=== PATIENT | female | born 1980 | race Caucasian/White ===

== ENCOUNTER → 2018-05-21 15:30 | Outpatient (REF) | payer BC, SELFPAY ==
[2018-05-24 15:17] LABS: Chlamydia Result Negative; GC Result Negative
== END ==
LOC: LBN 15:30
PROVIDERS: PCP Nurse Practitioner Family; Visit Provider Nurse Practitioner Family
DX: Z11.3 Encounter for screening for infections with a predominantly sexual mode of transmission (principal)
CPT/HCPCS: 87491; 87591

== ENCOUNTER → 2018-05-21 15:34 | Outpatient (CLI) | payer BC, SELFPAY ==
[2018-05-24 09:26] LABS: Hepatitis B Surface Ag Negative (NEGAT)
[2018-05-24 09:45] LABS: Hepatitis C Ab w Rflx HCV PCR Negative (NEGAT)
[2018-05-24 09:54] LABS: HIV-1/2 Ag & Ab Screen Negative (NEGAT)
[2018-05-24 11:24] LABS: Syphilis Serology (RPR) Negative (Negative)
== END ==
PROVIDERS: PCP Nurse Practitioner Family; Visit Provider Nurse Practitioner Family
DX: Z11.59 Encounter for screening for other viral diseases (principal); Z11.3 Encounter for screening for infections with a predominantly sexual mode of transmission; Z11.4 Encounter for screening for human immunodeficiency virus [HIV]
CPT/HCPCS: 36415; 86803; 87340; 87389; 86592

== ENCOUNTER 2019-11-21 12:10 | Outpatient (CLI) | payer BC, SELFPAY ==
[2019-11-22 10:08] LABS: Hep B Core Antibody Negative (Negative); Hepatitis C Ab w Rflx HCV PCR Negative (Negative)
[2019-11-22 10:25] LABS: HIV-1/2 Ag & Ab Screen Negative (Negative)
[2019-11-23 10:10] LABS: Syphilis Total Ab w/Reflex Nonreactive (Nonreactive)
== END 2019-11-21 12:30 ==
PROVIDERS: Visit Provider Advanced Practice Midwife
DX: K61.0 Anal abscess (principal); Z11.4 Encounter for screening for human immunodeficiency virus [HIV]; Z11.59 Encounter for screening for other viral diseases; Z01.419 Encounter for gynecological examination (general) (routine) without abnormal findings
CPT/HCPCS: 36415; 86704; 86803; 87389; 86780

== ENCOUNTER 2019-11-21 12:41 | Outpatient (REF) | payer BC, SELFPAY ==
--- NOTE | 2019-11-21 11:40 | PAPFT_PTH ---
PATIENT: Leandra Mcdaniels LOC: [facility] U#:[id number] AGE/SX: 39/F ROOM: RE11/21/[address]: Gregory Mccoy RN : 1980 BED: DIS: 11/21/2019 SPEC #: [id number] RECD: 11/21/19 12:52 STATUS: ABRAHAM REQ #: [id number] CHRISTOPHER: 11/21/19 11:[address]: Gregory Mccoy DEPT: [facility] Cytology RECD BY: Nadege Granados ENTERED: 11/21/19 12:52 SP TYPE: PAPFT OT DR: None Tissues: 1 - CX/ENDOCX FOR PAP SMEARS Procedures: PAP THIN PREP/[facility] Screening HPV DNA PROBE Comments: [id number]
[2019-11-22 13:09] LABS: Chlamydia Result Negative (Negative); GC Result Negative (Negative)
== END 2019-11-21 13:01 ==
LOC: LBN 12:41
PROVIDERS: Visit Provider Advanced Practice Midwife
DX: Z11.3 Encounter for screening for infections with a predominantly sexual mode of transmission (principal); Z12.4 Encounter for screening for malignant neoplasm of cervix; Z01.419 Encounter for gynecological examination (general) (routine) without abnormal findings; Z11.51 Encounter for screening for human papillomavirus (HPV)
CPT/HCPCS: 87491; 87591; 88142; 87480; 87510; 87624; 87660

== ENCOUNTER 2019-12-09 16:03 | Outpatient (REF) | payer BC, SELFPAY ==
--- NOTE | 2019-12-09 15:45 | ENDO_PTH ---
PATIENT: Leandra Mcdaniels LOC: [facility] U#:[id number] AGE/SX: 39/F ROOM: RE12/09/[address]: Kareem Bustos MD : 1980 BED: DIS: 12/09/2019 SPEC #: [id number] RECD: 12/09/19 17:40 STATUS: ABRAHAM REQ #: [id number] CHRISTOPHER: 12/09/19 15:[address]: Kareem Bustos DEPT: Surgical Specimen RECD BY: Nadege Granados ENTERED: 12/09/19 17:40 SP TYPE: Endo OTHR DR: None Tissues: 1 - ENDOCERVICAL BX/CURRETTE Procedures: GROSS AND MICRO LEVEL 4 P16 IPEX Comments: [id number]
== END 2019-12-09 16:23 ==
LOC: LBN 16:03
PROVIDERS: Visit Provider Obstetrics & Gynecology
DX: N87.9 Dysplasia of cervix uteri, unspecified (principal); R87.810 Cervical high risk human papillomavirus (HPV) DNA test positive
CPT/HCPCS: 88305; 88342

== ENCOUNTER 2020-05-09 10:35 | Outpatient (REF) | payer BC, SELFPAY | END 2020-05-09 10:55 | LOC: LBN 10:35 | PROVIDERS: Visit Provider Advanced Practice Midwife | DX: N89.8 Other specified noninflammatory disorders of vagina (principal) | CPT/HCPCS: 87480; 87510; 87660 ==

== ENCOUNTER 2020-05-15 00:59 | Outpatient (CLI) | payer BC, SELFPAY ==
--- NOTE | 2020-05-15 06:00 | DI.MAMMO_ITS ---
EXAM: MAMMO SCREENING CLINICAL HISTORY: screening,Z12.39 TECHNIQUE: Mammograms were interpreted according to the usual protocol including computer analysis w [employer] CAD system, tomosynthesis and C-view imaging. COMPARISON: FINDINGS: Breasts are heterogeneously dense. No dominant mass or clumped microcalcification is identified. To day's examination is a baseline examination. IMPRESSION: No specific evidence of malignancy at this time. Routine screening examinations are suggested at yea rly intervals in this age group according to the ACR guidelines. BI-RADS Category 1 - Negative Breast Density - Category C - Heterogeneously dense
== END 2020-05-15 01:19 ==
PROVIDERS: Visit Provider Advanced Practice Midwife
DX: Z12.31 Encounter for screening mammogram for malignant neoplasm of breast (principal); R92.2 Inconclusive mammogram
CPT/HCPCS: 77063; 77067

== ENCOUNTER 2021-01-16 08:55 | Outpatient (REF) | payer OTHER, SELFPAY ==
--- NOTE | 2021-01-16 08:30 | PAPFT_PTH ---
PATIENT: Leandra Mcdaniels LOC: [facility] U#:[id number] AGE/SX: 40/F ROOM: RE01/16/[address]: Jahaira Dugan NP : 1980 BED: DIS: 01/16/2021 SPEC #: [id number] RECD: 01/16/21 13:00 STATUS: ABRAHAM ZIMMERMAN #: [id number] CHRISTOPHER: 01/16/21 08:[address]: Jahaira Dugan NP DEPT: [facility] Cytology RECD BY: Nadege Granados Tissues: 1 - CX/ENDOCX FOR PAP SMEARS Procedures: PAP THIN PREP/[facility] Screening HPV DNA PROBE Comments: [id number]
== END 2021-01-16 08:56 | disposition home or self-care (01) ==
LOC: LBN 08:55
PROVIDERS: PCP Nurse Practitioner Women's Health; Visit Provider Nurse Practitioner Women's Health
DX: Z12.4 Encounter for screening for malignant neoplasm of cervix (principal); R87.610 Atypical squamous cells of undetermined significance on cytologic smear of cervix (ASC-US); Z11.51 Encounter for screening for human papillomavirus (HPV); R87.810 Cervical high risk human papillomavirus (HPV) DNA test positive
CPT/HCPCS: 88142; 87624

== ENCOUNTER 2021-02-07 08:56 | Outpatient (CLI) | payer OTHER, SELFPAY | END 2021-02-07 08:57 | disposition home or self-care (01) | PROVIDERS: PCP Nurse Practitioner Women's Health | DX: Z20.822 Contact with and (suspected) exposure to COVID-19 (principal) | CPT/HCPCS: U0003 ==

== ENCOUNTER 2021-07-02 10:11 | Outpatient (REF) | payer OTHER, SELFPAY ==
--- NOTE | 2021-07-02 09:30 | ENDO_PTH ---
PATIENT: Leandra Mcdaniels LOC: [facility] #:[id number] AGE/SX: 41/F ROOM: RE07/02/[address]: Tatiana Bravo : 1980 BED: DIS: 07/02/2021 SPEC #: [id number] RECD: 07/02/21 12:45 STATUS: ABRAHAM REJuan #: [id number] CHRISTOPHER: 07/02/21 09:[address]: Tatiana Bravo DEPT: Surgical Specimen RECD BY: Nadege Granados ENTERED: 07/02/21 12:46 SP TYPE: Endo OTHR DR: Jahaira Dugan NP Tissues: 1 - ENDOCERVICAL BX/CURRETTE 2 - CERVICAL BIOPSY Procedures: GROSS AND MICRO LEVEL 4 Comments: [id number]
== END 2021-07-02 10:12 | disposition home or self-care (01) ==
LOC: LBN 10:11
PROVIDERS: PCP Nurse Practitioner Women's Health; Referring Provider Obstetrics & Gynecology Gynecology; Visit Provider Obstetrics & Gynecology Gynecology
DX: N87.9 Dysplasia of cervix uteri, unspecified (principal)
CPT/HCPCS: 88305

== ENCOUNTER 2022-03-18 15:00 | Outpatient (REF) | payer OTHER, SELFPAY ==
--- NOTE | 2022-03-18 14:15 | PAPFT_PTH ---
PATIENT: Leandra Mcdaniels LOC: [facility] U#:[id number] AGE/SX: 42/F ROOM: RE03/18/[address]: SARY Vanegas : 1980 BED: DIS: 03/18/2022 SPEC #: [id number] RECD: 03/18/22 18:05 STATUS: ABRAHAM REQ #: [id number] CHRISTOPHER: 03/18/22 14:[address]: Sari Nguyễn DEPT: [facility] Cytology RECD BY: Nadege Granados ENTERED: 03/18/22 18:05 SP TYPE: PAPFT OTHR DR: Jahaira Dugan NP Tissues: 1 - CX/ENDOCX FOR PAP SMEARS Procedures: PAP THIN PREP/[facility] Screening HPV DNA PROBE Comments: [id number]
== END 2022-03-18 15:01 | disposition home or self-care (01) ==
LOC: LBN 15:00
PROVIDERS: PCP Nurse Practitioner Women's Health; Visit Provider Nurse Practitioner Family
DX: Z12.4 Encounter for screening for malignant neoplasm of cervix (principal); Z11.51 Encounter for screening for human papillomavirus (HPV); R87.810 Cervical high risk human papillomavirus (HPV) DNA test positive; Z87.42 Personal history of other diseases of the female genital tract
CPT/HCPCS: 88142; 87624

== ENCOUNTER 2022-05-02 10:02 | Outpatient (REF) | payer OTHER, SELFPAY ==
--- NOTE | 2022-05-02 09:45 | ENDO_PTH ---
PATIENT: Leandra Mcdaniels LOC: [facility] U#:[id number] AGE/SX: 42/F ROOM: RE05/02/[address]: Tatiana Bravo : 1980 BED: DIS: 05/02/2022 SPEC #: [id number] RECD: 05/02/22 12:55 STATUS: ABRAHAM REQ #: [id number] CHRISTOPHER: 05/02/22 09:[address]: Tatiana Bravo DEPT: Surgical Specimen RECD BY: Nadege Granados ENTERED: 05/02/22 12:56 SP TYPE: Endo OTHR DR: Jahaira Dugan, YADY Tissues: 1 - ENDOCERVICAL BX/CURRETTE Procedures: GROSS AND MICRO LEVEL 4 P16 IPEX Comments: [id number]
--- OUTSIDE RECORDS SUMMARY | 2022-05-02 10:17 | XMS_ITS | Encounter Summary ---
:1980 Author Organization [facility] Address [address] [place] [address] Care Team Providers Name Role Phone Samanta Moreno NP Primary Care Provider None, Provider Primary Care Provider Unavailable Encounter Details Date Type Department Care Team Description 11/21/2019 Lab Requisition [facility] Unknown, Provider, Pathology & Laboratory [facility] [address] [place] [address] [place] [address] Social History Tobacco Use Types Packs/Day Years Used Date Never Assessed Sex Assigned at Date Recorded Not on file documented as of this encounter Plan of Treatment Not on filedocumented as of this encounter Procedures Procedure Name Priority Date/Time Associated Diagnosis Comme nts HEPATITIS C AB W Routine 11/21/2019 12:25 Results for this REFLEX TO HCV RNA EST procedure are in BY PCR the results section. HEPATITIS B CORE Routine 11/21/2019 12:25 Results for this ANTIBODY (TOTAL) EST procedure a re in the results section. documented in this encounter Results HEPATITIS B CORE ANTIBODY (TOTAL) (11/21/2019 12:25 EST) Pathologist Sig nature Hepatitis B Core Ab, Negative Negative [facility] Total LABORATORY SERVICES Specimen Blood - Venous blood (substance) Performing Organization Address City/State/ZIP Code Phon e Number [facility] [address] [place] [address] SERVICES HEPATITIS C AB W REFLEX TO HCV RNA BY PCR (11/21/2019 12:25 EST) Pathologist Sig nature Hep C Antibody Negative Negative [facility] ORY SERVICES Specimen Blood - Venous blood (substance) Performing Organization Address City/State/ZIP Code Phon e Number [facility] [address] [place] [address] SERVICES documented in this encounter Visit Diagnoses Not on filedocumented in this encounter Additional Health Concerns Infection Onset Date Last Indicated Resolved Time COVID-19 02/07/2021 02/07/2021 03/09/2021 22:15 EDT documented as of this encounter Care Teams Sciences Dean Relationship Specialty Start Date End Date Samanta Moreno NP PCP - General 12/12/13 12/08/19 [facility] [address] [place] [address] None, Provider PCP - General 12/09/19 documented as of this encounter
--- OUTSIDE RECORDS SUMMARY | 2022-05-02 10:17 | XMS_ITS | Clinical Summary ---
:1980 Author Organization [facility] Address [address] [place] [address] Care Team Providers Name Role Phone None, Provider Primary Care Provider Unavailable Encounters Date Type Specialty Care Team Description 03/19/2022 Lab Requisition Clinical Laboratory Sari Nguyễnnter for other E, LEATHER STAMPER general examina tion from Last 3 Months Social History Tobacco Use Types Packs/Day Years Used Date Never Assessed Sex Assigned at Date Recorded Not on file Plan of Treatment Health Maintenance Due Date Last Done Comments COVID-19 Vaccine (#1) 02/05/1984 Hepatitis C Screen Completed 11/21/2019 Procedures Procedure Name Priority Date/Time Associated Comments Diagnosis PAP TEST Today 03/18/2022 2:15 Encounter for other Resul ts for this EDT general examination procedur e are in the results section. HUMAN PAPILLOMAVIRUS Today 03/18/2022 2:15 Encounter for oth er Results for this (HPV) DETECTION-HIGH EDT general examination procedure are in RISK TYPES the results section. from Last 3 Months Results PAP TEST (03/18/2022 2:15 EDT) Specimens A. Cervix and/or [facility] Endocervix , ThinPrep CENTER Imaging System with LABORATORY Manual Evaluation SERVICES Specimen Adequacy Satisfactory for [facility] Evaluation - CENTER transformation zone LABORATORY component present SERVICES General Negative for [facility] Categorization intraepithelial CENTER lesion or malignancy LABORATORY SERVICES Descriptive Reactive cellular [facility] Diagnosis changes associated CENTER with inflammation LABORATORY present (includes SERVICES repair). Attestation By the signature below, the attending physician certifies that they have personally conducted a gross and/or microscopic [facility] Electronically examination of the described specimens and rendered or confirmed the above diagnosis. CENTER signed by ALAN Le MD on SERVICES 03/28/2022 at 15 36 Clinical History See below [facility] SERVICES HPV The result for the Human Pap illomavirus (HPV) Detection-High Risk Types is Positive . E6 OR E7 mRNA from one or more types of HPV types 16,18,31,33,35,39,45,51,52,56,58,59,66, and 68 is detected by dorman [facility] scription mediated amplifica tion. High and intermediate risk HPV types are associated with most squamous intraepithelial lesions and cervical cancers. Testing was performed on specimen [id number] and CENTER was resulted on 03/28/2022 1528 EDT by CAMMY, LAB INSTRUMENT RESULTS IN LABORATORY SERVICES Performing Lab [facility] Scanned Images [facility] SERVICES Specimen Pap Test - Cervix and/or Endocervix Performing Organization Address City/[facility]/ZIP [facility] [place] Number [facility] [address] [place] [address] SERVICES (ABNORMAL) HUMAN PAPILLOMAVIRUS (HPV) DETECTION-HIGH RISK TYPES (03/18/2022 2:15 EDT) Human Papillomavirus Positive (A)Comment: Negative [facility] (HPV) Detection-High E6 OR E7 mRNA from CENTER Types one or more types of LABORATORY HPV types SERVICES 16,18,31,33,35,39,45, 51,52,56,58,59,66, and 68 is detected by sandblaster paint sprayer mediated amplification. High and intermediate risk HPV types are associated with most squamous intraepithelial lesions and cervical cancers. Specimen Pap Test - Cervix and/or Endocervix Performing Organization Address City/State/ZIP [facility] Phon e Number [facility] [address] [place] [address] SERVICES from Last 3 Months Insurance Payer Benefit Plan / Subscriber ID Effective Dates Phone Addre ss Type Group [employer] HMO/POS [id number] 2020-Present [address] [place] [id number] Care Teams Compliance Field Technician Relationship Specialty Start Date End Date None, Provider PCP - General 12/09/19
--- OUTSIDE RECORDS SUMMARY | 2022-05-02 10:17 | XMS_ITS | Encounter Summary ---
:1980 Author Organization [facility] Address [address] [place] [address] Care Team Providers Name Role Phone Unavailable Primary Care Provider Unavailable Encounter Details Date Type Department Care Team Description 06/23/2004 Hospital Encounter [facility] - Felisha Alexis MD [address] [place], [place] [id number] Other Ron Drake MD [address], [place] [id number] Social History Tobacco Use Types Packs/Day Years Used Date Never Assessed Sex Assigned at Date Recorded Not on file documented as of this encounter Discharge Disposition Disposition Code Departure Means Destination Auto Discharge documented in this encounter Plan of Treatment Not on filedocumented as of this encounter Visit Diagnoses Not on filedocumented in this encounter
--- OUTSIDE RECORDS SUMMARY | 2022-05-02 10:17 | XMS_ITS | Encounter Summary ---
:1980 Author Organization [facility] Address [address] [place] [address] Care Team Providers Name Role Phone Samanta Bhatt NP Primary Care Provider Encounter Details Date Type Department Care Team Description 02/14/2016 Results Only [facility]- [facility] Tatiana Zuñiga MD [phone] [facility] [address] [address] (Wo rk) Social History Tobacco Use Types Packs/Day Years Used Date Never Assessed Sex Assigned at Date Recorded Not on file documented as of this encounter Plan of Treatment Not on filedocumented as of this encounter Procedures Procedure Name Priority Date/Time Associated Diagnosis Comme nts PAP TEST- RESULT Routine 02/14/2016 0:00 EDT Resu lts for this ONLY procedure are i n the results section. documented in this encounter Results PAP TEST- RESULT ONLY (02/14/2016 0:00 EDT) Pathology Report: CYTOPATHOLOGY REPORT [facility] Reports generated via electronic interface contain carlos ginal data; SERVICES however they are lacking the format of the original re port. Caution should be taken when reading/interpreting unfo rmatted reports. Name: ? CHINO GIL ? Accession #: ? [id number] ? : ? 1980 (Age: [age]) ??F ?Collect Date: ? 2015 ? Location: ? [facility] ? Receive Date: ? 6 ? Provider: TATIANA ZUÑIGA MD Copy to: SAMANTA BHATT MANAGER FITNESS ? Final Report SPECIMEN ADEQUACY ? Satisfactory for Evaluation - transformation zone component present - scant squamous epithelial component secondary to exc essive inflammation GENERAL CATEGORIZATION ? Negative for Intraepithelial Lesion or Malignan cy INTERPRETATION ? Reactive cellular ayo nges associated with inflammation present (includes repair). Hormonal/Contraceptive status: Depo-Provera Previous Gynecologic Pathology: HPV: + HR with negativ e colpo Treatment History: Colposcopy: Negative Specimen/Source: ??Pap Test, Cervix/Endocervix, ThinPr ep Imaging System with manual evaluation Document reviewed and electronically signed by: ? INDER MCFARLAND MD ? Report ??Date: 02/28/2016 08:29 HPV with Pap Test ? Date Ordered: ? 02/27/2016 ? Status: ?? Signed Out ?Date Complete: ? 03/03/2016 ? By: ??Sy stem Interface ? Date Reported: ? 03/03/2016 ? Interpretation RESULT: Negative for HPV. No E6 or E7 mRNA is detected from HPV types 16,18,31,3 3,35, 39,45,51,52,56,58,59,66, and 68 by residential subcontractor media logan amplification. Comments Document reviewed and electronically signed by: ? System Interface ? Report date: 03/03/2016 By the signature above, the attending physician certif ies that he/she has personally conducted a gross and/or microscopic examin ation of the described specimens and rendered or confirmed the above diagnosi s. End of Report Specimen Performing Organization Address City/State/ZIP Code Phon e Number [facility] [address] [place] [address] SERVICES documented in this encounter Visit Diagnoses Not on filedocumented in this encounter Care Teams Equipment Operator Warehouse Relationship Specialty Start Date End Date Samanta Bhatt NP PCP - General 12/12/13 12/08/19 [facility] [address] [place] [id number] documented as of this encounter
--- OUTSIDE RECORDS SUMMARY | 2022-05-02 10:17 | XMS_ITS | Encounter Summary ---
:1980 Author Organization [facility] Address [address] [place] [address] Care Team Providers Name Role Phone Unavailable Primary Care Provider Unavailable Encounter Details Date Type Department Care Team Description 02/25/2008 Results Only [facility] - Samanta Mendez NP conversion [facility] [address] [place] [address] [place] [address] [phone] Social History Tobacco Use Types Packs/Day Years Used Date Never Assessed Sex Assigned at Date Recorded Not on file documented as of this encounter Plan of Treatment Not on filedocumented as of this encounter Procedures Procedure Name Priority Date/Time Associated Diagnosis Comme nts CYTOPATHOLOGY Routine 02/25/2008 0:00 EDT Results for this procedure are i n the results section . documented in this encounter Results CYTOPATHOLOGY (02/25/2008 0:00 EDT) Pathology Report: CYTOPATHOLOGY REPORT [facility] Reports generated via electronic interface contain carlos ginal data; however they are lacking the format of the original re port. Caution should be taken when reading/interpreting unfo rmatted reports. Name: ? CHINO GIL ? Accession #: ? [id number] : ? 1980 (Age: 28) ??F ?Collect Date: ? 02/09 Location: ? [facility] ? Receive Date : ? 02/29/2008 Provider: ?SAMANTA BHTAT SERVICE ASSISTANT Copy to: ? Specimen/Source: ? ThinPrep Pap Test, Cervix/Endocervix, processed on alooma ThinPrep Imaging System, with manual evaluation Last Menstrual Period: ? Hormonal/Contraceptive Status: ? Depo-Provera ? SPECIMEN ADEQUACY ? Satisfactory for Evaluation - transformation zone component present GENERAL CATEGORIZATION ? Epithelial Cell Abnormality INTERPRETATION ? Squamous Cell Abnormality - Low grade squamous intraepithelial lesion (LSIL). Shift in [place] present suggestive of bacterial vaginos is. EDUCATIONAL NOTES/RECOMMENDATIONS ? [facility] recommends erickson meeks the 2006 Consensus Guidelines for the Management of Women with Abnormal Cervical Cancer Screening Tests (JLGTD, 2007;11(4):201-222). ??Consensus guidelines are availa ble online at www.ASCCP.org. ? Document reviewed and electronically signed by: ? ADELIA BEY MD ? Report Date: ??03/02/2008 16:23 End of Report Specimen Performing Organization Address City/State/ZIP Code Phon e Number [facility] [address] [place] [address] SERVICES [facility] [address] [place] [address] documented in this encounter Visit Diagnoses Not on filedocumented in this encounter
--- OUTSIDE RECORDS SUMMARY | 2022-05-02 10:17 | XMS_ITS | Encounter Summary ---
:1980 Author Organization [facility] Address [address] [place] [address] Care Team Providers Name Role Phone Samanta Moreno NP Primary Care Provider None, Provider Primary Care Provider Unavailable Encounter Details Date Type Department Care Team Description 11/21/2019 Lab Requisition [facility] Unknown, Provider, Pathology & Laboratory [facility] [address] [place] [address] [place] [address] Social History Tobacco Use Types Packs/Day Years Used Date Never Assessed Sex Assigned at Date Recorded Not on file documented as of this encounter Plan of Treatment Not on filedocumented as of this encounter Procedures Procedure Name Priority Date/Time Associated Comments Diagnosis CHLAMYDIA/N. Routine 11/21/2019 11:40 Results for this GONORRHOEAE AMPLIFIED EST proced ure are in RNA the results section. documented in this encounter Results CHLAMYDIA/N. GONORRHOEAE AMPLIFIED RNA (11/21/2019 11:40 EST) Pathologist Sig nature Gonococcus Result Negative Negative [facility] Chlamydia Result Negative Negative [facility] Specimen Swab - Specimen from uterine cervix (spe cimen) Performing Organization Address City/State/ZIP Code Phon e Number [facility] [address] [place] [address] SERVICES documented in this encounter Visit Diagnoses Not on filedocumented in this encounter Additional Health Concerns Infection Onset Date Last Indicated Resolved Time COVID-19 02/07/2021 02/07/2021 03/09/2021 22:15 EDT documented as of this encounter Care Teams Mold Sheet Cleaner Relationship Specialty Start Date End Date Samanta Moreno, MANUFACTURE SPECIALIST PCP - General 12/12/13 12/08/19 [facility] [address] [place] [address] None, Provider PCP - General 12/09/19 documented as of this encounter
--- OUTSIDE RECORDS SUMMARY | 2022-05-02 10:17 | XMS_ITS | Encounter Summary ---
:1980 Author Organization [facility] Address [address] [place] [address] Care Team Providers Name Role Phone Unavailable Primary Care Provider Unavailable Encounter Details Date Type Department Care Team Description 01/17/2009 Before [facility] Converted [facility], Visit (Maple) Maple conversion PHYSICIAN GENERAL INTERNAL MEDICINE [address] [place] [address] Social History Tobacco Use Types Packs/Day Years Used Date Never Assessed Sex Assigned at Date Recorded Not on file documented as of this encounter Plan of Treatment Not on filedocumented as of this encounter Procedures Procedure Name Priority Date/Time Associated Comments Diagnosis HPV DETECTION, HIGH Routine 01/17/2009 15:22 Resu lts for this RISK TYPES EDT procedure are i n the results section. CYTOPATHOLOGY Routine 01/17/2009 0:00 Results for this EDT procedure are i n the results section. documented in this encounter Results HUMAN PAPILLOMA VIRUS DNA TEST (01/17/2009 15:22 EDT) Specimen Description Cervix, ThinPrep [facility] Result Positive for one or more of HPV types 16,18,31,33,35,39,45,51,52,56,58,59, or 68. These WARREN Adrian RICH high/intermediate risk HPV t ypes are associated with dysplasia and some cervical cancers. LAB Report Status Final [facility] 01/25/2009 LAB Specimen Performing Organization Address City/State/ZIP Code Phon e Number [facility] [address] [place] [address] SERVICES [facility] [address] [place] [address] CYTOPATHOLOGY (01/17/2009 0:00 EDT) Pathology Report: CYTOPATHOLOGY REPORT ? [facility] ? LAB Reports generated via electr Smaato interface contain original data; ? however they are lacking the format of the original report. ? Caution should be taken when reading/interpreting unformatted reports. ? Name: ? CHINO GIL ? Accession #: ? [id number] ? : ? 1980 (Age: 28) ??F ?Collect Date: ? 01/17/2009 ? Location: ? [facility] ? Receive Date: ? 01/18/2009 ? Provider: ?ELVIA M RO WLETT PHYSICIAN GENERAL INTERNAL MEDICINE ? Copy to: ? Specimen/Source: ? Pap Test, Cervix/Endocervix, ThinPrep Imaging System ? with manual evaluation ? Last Menstrual Period: ? 12/08 ? Hormonal/Contraceptive Statu s: ? Depo-Provera ? Previous Gynecologic Patholo gy: ? LSIL: 05/16/08 no follow-up ? Other: ? HPVDX - HPV testing requeste d regardless of diagnosis on current ThinPrep Pap ?? test. ? SPECIMEN ADEQUACY ? Satisfactory for Eval uation ? - transformation zone compon ent present ? GENERAL CATEGORIZATION ? Epithelial Cell Abnor mality ? INTERPRETATION ? Squamous Cell Abnorma lity - Atypical squamous cells, undetermined ? significance (ASC-US). ? EDUCATIONAL NOTES/RECOMMENDA TIONS ? [facility] recommends derrello wing the 2006 Consensus Guidelines for the Management of Women with Abnormal Cervi isai Cancer Screening Tests (JLGTD, ? 2007;11(4):201-222). ??Conse nsus guidelines are available online at ? www.ASCCP.org. ? Document reviewed and electr onically signed by: ? Glen Lacy MD ? Report Date: ??04/14/ 2009 12:27 ? End of Report ? Specimen Performing Organization Address City/State/ZIP Code Phon e Number [facility] [address] [place] [address] SERVICES [facility] [address] [place] [address] documented in this encounter Visit Diagnoses Not on filedocumented in this encounter
--- OUTSIDE RECORDS SUMMARY | 2022-05-02 10:17 | XMS_ITS | Encounter Summary ---
:1980 Author Organization [facility] Address [address] [place] [address] Care Team Providers Name Role Phone Unavailable Primary Care Provider Unavailable Encounter Details Date Type Department Care Team Description 11/09/2013 Results Only [facility] Angie Mcduffie, YADY Laboratory Services - [address] [address] Social History Tobacco Use Types Packs/Day Years Used Date Never Assessed Sex Assigned at Date Recorded Not on file documented as of this encounter Plan of Treatment Not on filedocumented as of this encounter Procedures Procedure Name Priority Date/Time Associated Diagnosis Comme nts PAP TEST- RESULT Routine 11/09/2013 0:00 EST Resu lts for this ONLY procedure are i n the results section. documented in this encounter Results PAP TEST- RESULT ONLY (11/09/2013 0:00 EST) Pathology Report: CYTOPATHOLOGY REPORT [facility] Reports generated via electronic interface contain carlos ginal data; however they are lacking the format of the original re port. Caution should be taken when reading/interpreting unfo rmatted reports. Name: ? CHINO GIL ? Accession #: ? [id number] ? : ? 1980 (Age: 33) ??F ?Collect Da te: ? 11/09/2013 ? Location: ? [facility] ? Receive Date: ? 014 ? Provider: ANGIE MCDUFFIE LICENSING REPRESENTATIVE Copy to: GORDON BHATT LICENSING REPRESENTATIVE ? Final Report SPECIMEN ADEQUACY ? Satisfactory for Evaluation - transformation zone component present GENERAL CATEGORIZATION ? Negative for Intraepithelial Lesion or Malignan cy INTERPRETATION ? Reactive cellular ayo nges associated with inflammation present (includes repair). Last Menstrual Period: 5 YRS AGO Hormonal/Contraceptive status: Intrauterine device: [facility] ASHLEE Previous Gynecologic Pathology: LSIL: P HX 2007 ASC-US HPV: + 2008, Treatment History: Colposcopy: 03/2009 ??Neg / no bx Other: Additional clinical information: no f/iu since Specimen/Source: ??Pap Test, Cervix/Endocervix, ThinPr ep Imaging System with manual evaluation Document reviewed and electronically signed by: ? ELIDA MCCLAIN MD ? Report ??Date: 11/16/2013 18:14 HPV with Pap Test ? Date Ordered: ? 11/16/2013 ? Status: ?? Signed Out ?Date Complete: ? 11/18/2013 ? By: ??S ystem Interface ? Date Reported: ? 11/18/2013 ? Interpretation RESULT: Positive for high or intermediate risk HPV. E6 OR E7 mRNA from one or more types of HPV types 16,1 8,31, 33,35,39,45,51,52,56,58,59,66, and 68 is detected by care asst mediated amplification. High and intermediate risk HPV types are associated wi th most squamous intraepithelial lesions and cervical can cers. Comments Document reviewed and electronically signed by: ? System Interface ? Report date: 11/18/2013 By the signature above, the attending physician certif ies that he/she has personally conducted a gross and/or microscopic examin ation of the described specimens and rendered or confirmed the above diagnosi s. End of Report Specimen Performing Organization Address City/State/ZIP Code Phon e Number [facility] [address] [place] [address] SERVICES [facility] [address] [place] [address] documented in this encounter Visit Diagnoses Not on filedocumented in this encounter
--- OUTSIDE RECORDS SUMMARY | 2022-05-02 10:17 | XMS_ITS | Encounter Summary ---
:1980 Author Organization [facility] Address [address] [place] [address] Care Team Providers Name Role Phone None, Provider Primary Care Provider Unavailable Encounter Details Date Type Department Care Team Description 12/10/2019 Lab Requisition [facility] Kareem Bustos MD Encounter for other Pathology & [address] [facility] general examination Laboratory Medicine [facility] [id number] [address] [facility] [phone] [place] [address] (Work) [phone] Social History Tobacco Use Types Packs/Day Years Used Date Never Assessed Sex Assigned at Date Recorded Not on file documented as of this encounter Plan of Treatment Not on filedocumented as of this encounter Procedures Procedure Name Priority Date/Time Associated Diagnosis Comme nts SURGICAL PATHOLOGY Today 12/09/2019 15:35 Encounter for othe r Results for this EST general examination procedur e are in the results section. documented in this encounter Results SURGICAL PATHOLOGY (12/09/2019 15:35 EST) Final Diagnosis A. ENDOCERVIX, CURETTAGE: [facility] Electronically - Squamous and glandular epithelium with degener ative atypia. See comment. CENTER signed by ALAN Hull MD on SERVICES 12/14/2019 at 133 2 Diagnosis Comment Immunostaining for P16 (E6H4 TM, Primghar) was attempted, but no tissue remains in the block. We favor the atypia is degenerative. This case was reviewed at the intradepartmental consultation conference on 12/14/2019. [facility] Clinical History HR HPV+ [facility] Attestation There was significant [facility] Electr onically resident/fellow CENTER signed by Yao bacon, involvement in the LABORATORY Navya lauren MD on diagnostic evaluation SERVICES 12/14/19 20 at 1332 of this case. By the signature below, the attending physician certifies that they have personally conducted a gross and/or microscopic examination of the described specimens and rendered or confirmed the above diagnosis. Gross Description A. Received in formalin labe lled with proper patient identification (initials B, D) and ECC is an aggregate of scant cloudy viscous material (0.3 x 0.2 x 0.1 cm). Entirely submitted in A1. [facility] Iona Marks 12/10/2019 7:40 LABORATORY SERVICES Resident/Fellow: Mehul Castillo MD [facility] Scanned Images [facility] Specimen Tissue - Entire endocervix (body structu re) Performing Organization Address City/State/ZIP Code Phon e Number [facility] [address] [place] [address] SERVICES documented in this encounter Visit Diagnoses Diagnosis Encounter for other general examination documented in this encounter Additional Health Concerns Infection Onset Date Last Indicated Resolved Time COVID-19 02/07/2021 02/07/2021 03/09/2021 22:15 EDT documented as of this encounter Care Teams Sterilizer Operator Relationship Specialty Start Date End Date None, Provider PCP - General 12/09/19 documented as of this encounter
--- OUTSIDE RECORDS SUMMARY | 2022-05-02 10:17 | XMS_ITS | Encounter Summary ---
:1980 Author Organization [facility] Address [address] [place] [address] Care Team Providers Name Role Phone Unavailable Primary Care Provider Unavailable Encounter Details Date Type Department Care Team Description 03/10/2002 Hospital Encounter [facility] Emergency, Emergency Department - MD Yobany Main [address] [address] Social History Tobacco Use Types Packs/Day Years Used Date Never Assessed Sex Assigned at Date Recorded Not on file documented as of this encounter Discharge Disposition Disposition Code Departure Means Destination Home or Self Care documented in this encounter Plan of Treatment Not on filedocumented as of this encounter Procedures Procedure Name Priority Date/Time Associated Diagnosis Comme nts URINE SEDIMENT Routine 03/10/2002 8:07 EDT Result s for this (MICRO) WITHOUT procedure ar e in REFLEX TO CULTURE the result s section. BACTERIAL CULTURE, Routine 03/10/2002 8:07 EDT Re sults for this URINE procedure are i n the results section. documented in this encounter Results BACTERIAL CULTURE, URINE (03/10/2002 8:07 EDT) Specimen Description Urine [facility] Result Greater than 100,000 CFU/ml [facility] Less than 10,000 CFU/ml Mixed gram positive growth Report Status Final [facility] [id number] [facility] Specimen Organism Antibiotic Method Susceptibility Greater than 100,000 Ampicillin SUSCEPTIBILITY (SHRUTHI) 2 Susc eptible cfu/ml escherichia coli Greater than 100,000 Cefazolin SUSCEPTIBILITY (SHRUTHI) <=8 Steiner sceptible cfu/ml escherichia coli Greater than 100,000 Gentamicin SUSCEPTIBILITY (SHRUTHI) <=0.5 Susceptible cfu/ml escherichia coli Greater than 100,000 Trimethoprim-Sulfametho SUSCEPTIBILITY (SHRUTHI ) <=.5/9.5 Susceptible cfu/ml escherichia xazole coli Greater than 100,000 Nitrofurantoin SUSCEPTIBILITY (SHRUTHI) <=32 S usceptible cfu/ml escherichia coli Greater than 100,000 Tobramycin SUSCEPTIBILITY (SHRUTHI) 1 Susc eptible cfu/ml escherichia coli Greater than 100,000 Amikacin SUSCEPTIBILITY (SHRUTHI) <=2 Steiner sceptible cfu/ml escherichia coli Greater than 100,000 Imipenem SUSCEPTIBILITY (SHRUTHI) <=4 Steiner sceptible cfu/ml escherichia coli Greater than 100,000 Piperacillin SUSCEPTIBILITY (SHRUTHI) <=8 Steiner sceptible cfu/ml escherichia coli Greater than 100,000 Ciprofloxacin SUSCEPTIBILITY (SHRUTHI) <=0.5 Susceptible cfu/ml escherichia coli Performing Organization Address City/State/ZIP Code Phon e Number [facility] [address] [place] [address] SERVICES [facility] [address] [place] [address] URINE MICROSCOPIC ONLY (03/10/2002 8:07 EDT) WBC, UA >50 0 - 5 /HPF [facility] RBC, UA >50 0 - 5 /HPF [facility] Squam Epithel, UA None seen NS /HPF [facility] Renal Epithel, UA None seen NS /HPF [facility] Bacteria, UA None seen NS /HPF [facility] Crystals, UA None seen /HPF [facility] Hyaline Casts, UA None seen /LPF [facility] UA Comment Microscopic results [facility] are unreliable on LAB urines unrefrig >2hrs or refrig >8hrs. Specimen Performing Organization Address City/State/ZIP Code Phon e Number [facility] [address] [place] [address] SERVICES [facility] [address] [place] [address] documented in this encounter Visit Diagnoses Not on filedocumented in this encounter
--- OUTSIDE RECORDS SUMMARY | 2022-05-02 10:17 | XMS_ITS | Encounter Summary ---
:1980 Author Organization [facility] Address [address] [place] [address] Care Team Providers Name Role Phone Unavailable Primary Care Provider Unavailable Encounter Details Date Type Department Care Team Description 12/07/2013 Results Only [facility]- Tatiana Knowles MD [phone] [facility] [address] [place] [address] (Wo rk) Social History Tobacco Use Types Packs/Day Years Used Date Never Assessed Sex Assigned at Date Recorded Not on file documented as of this encounter Plan of Treatment Not on filedocumented as of this encounter Procedures Procedure Name Priority Date/Time Associated Diagnosis Comme [facility] SURGICAL PATHOLOGY Routine 12/07/2013 18:11 Resul ts for this EST procedure are i n the results section. documented in this encounter Results SURGICAL PATHOLOGY (12/07/2013 18:11 EST) Pathologist [facility] Pathology SURGICAL PATHOLOGY REPORT [facility] Report: Reports generated via electronic interface contain carlos ginal data; LAB however they are lacking the format of the original re port. Caution should be taken when reading/interpreting unfo rmatted reports. Name: ? CHINO GIL ? Accession #: ? [id number] ? : ? 1980 (Age: 33) ??F ? Collect Date: ? 12/07/2013 ? Location: ? [facility] ? Receive Date: ? 014 ? Provider: TATIANA ZUÑIGA MD Copy to: GORDON BHATT MEDIA RELATIONS INTERN ? Final Pathologic Diagnosis: ? A. ? CERVIX, 12 O'CLOCK, BIOPSY: - ? Transformation zone mucosa with reactive squamous atypia. ??See comment. ? B. ? CERVIX, 3 O'CLOCK, BIOPSY: - ? Benign transformation zone mucos a with acute inflammation and reactive epithelial changes. ? C. ? CERVIX, 6 O'CLOCK, BIOPSY: - ? Benign transformation zone mucosa with reactiv e epithelial changes. ? D. ? CERVIX, 9 O'CLOCK, BIOPSY: - ? Benign transformation zone mucosa with reactiv e epithelial changes. Comment: The focus of reactive atypia (specimen A ) did show increased mitotic activity. To further investigate this focus, immun ohistochemical staining was performed. Positive and negative controls stained appropriately. ? ANTIBODY(CLONE)(BLOCK):RESULT P16 (E6H4TM, [employer]erTrack) (A1): Negative staining (scant amount of atypia present) MIB-1(DAKO) (MIB-1, Dako) (A1): Increased suprabasal s taining The combined histologic and immunohistochemical patter ns are interpreted as reactive atypia. ??This focu s and additional sections from this cervical biopsy series were at the intradepartmental consultation conf erence. ? NOTE: ??One or more of the reagents used in immunohistochemical testing in this case may not have been cleared or approved by the U.S. Food and Drug Administration (FDA). ??The FDA has determined that such clearance or approval is not necessary. ??These tests are used for clinical purposes. ??They should not be regarded as investigational or for research. ??These r eagents' performance characteristics have been determined by [facility]. ??This laboratory is certified unde r the Clinical Laboratory Improvement Amendments of 1988 (CLIA-88) as qualified to perform high complexity clinical laboratory testing. ?? Drs. Molina and Cathy 12/12/2013 10:20 AM Document reviewed and electronically signed by: KO MOLINA MD Report ??Date: 12/14/2013 08:44 By the signature above, the attending physician certif ies that he/she has personally conducted a gross and/or microscopic examin ation of the described specimens and rendered or confirmed the above diagnosi s. Specimen(s) Received: A. ??Cervical bx 12 o'clock B. ??Cervical bx 3 o'clock C. ??Cervical bx 6 o'clock D. ??Cervical bx 9 o'clock Clinical History: Ectocervical bx 12, 3, 6, 9 o'clock; HR (+) HPV/nl Pap Gross Description: A. ?Received in formalin labelled with proper p atient identification (initials B, D) and cx 12 o'clock is a single stoddard-wh ite, focally mucinous tissue fragment (0.5 x 0.4 x 0.2 cm). Submitted intact in A1. B. ?Received in formalin labelled with proper p atient identification (initials B, D) and cx 3 o'clock are t wo stoddard-white tissues (0.3 x 0.2 x less than 0.1 cm and 0.3 x 0.2 x 0.1 cm). Entirely submitte d in B1. C. ?Received in formalin labelled with proper p atient identification (initials B, D) and cx 6 o' clock is a single stoddard-white tissue fragment (0.5 x 0.3 x 0.3 cm). Submitted intact in C1. D. ? Received in formalin labelled with proper pat ient identification (initials B, D) and cx 9 o' clock is a single stoddard-white tissue fragment (0.4 x 0.3 x 0.2 cm). Submitted intact in D1. Sarah Pereyra 12/08/2013 09:30 AM End of Report Specimen Performing Organization Address City/State/ZIP Code Phon e Number [facility] [address] [place] [address] SERVICES [facility] [address] [place] [address] documented in this encounter Visit Diagnoses Not on filedocumented in this encounter
--- OUTSIDE RECORDS SUMMARY | 2022-05-02 10:17 | XMS_ITS | Encounter Summary ---
:1980 Author Organization [facility] Address [address] [place] [address] Care Team Providers Name Role Phone None, Provider Primary Care Provider Unavailable Encounter Details Date Type Department Care Team Description 03/19/2022 Lab Requisition [facility] Sari Nguyễn E ncounter for other Pathology & FLEXIBLE MACHINING SYSTEM MACHINIST general examination Laboratory Medicine [address] [place], [place] [address] [facility] [address] [place] [address] Social History Tobacco Use Types Packs/Day [...] are in RISK TYPES the results section. documented in this encounter Results (ABNORMAL) HUMAN PAPILLOMAVIRUS (HPV) DETECTION-HIGH RISK TYPES (03/18/2022 2:15 EDT) Human Papillomavirus Positive (A)Comment: Negative [facility] MEDICAL (HPV) Detection-High E6 OR E7 mRNA from CENTER Types one or more types of LABORATORY HPV types SERVICES 16,18,31,33,35,39,45, 51,52,56,58,59,66, and 68 is detected by anesthesiologist/physician mediated amplification. High and intermediate risk HPV types are associated with most squamous intraepithelial lesions and cervical cancers. Specimen Pap Test - Cervix and/or Endocervix Performing Organization Address City/[facility] Code Phon e Number [facility] [address] [place] [address] SERVICES PAP TEST (03/18/2022 2:15 EDT) Specimens A. Cervix and/or [facility] MEDICAL Endocervix , ThinPrep CENTER Imaging System with LABORATORY Manual Evaluation SERVICES Specimen Adequacy Satisfactory for [facility] MEDICAL Evaluation - CENTER transformation zone LABORATORY component present SERVICES General Negative for [facility] MEDICAL Categorization intraepithelial CENTER lesion or malignancy LABORATORY SERVICES Descriptive Reactive cellular UV MEDICAL Diagnosis changes associated CENTER with inflammation LABORATORY present (includes SERVICES repair). Attestation By the signature below, the attending physician certifies that they have personally conducted a gross and/or microscopic [facility] MED ICA Electronically examination of the described specimens and rendered or confirmed the above diagnosis. CENTER signed by ALAN Le MD on SERVICES 03/28/2022 at 15 36 Clinical History See below [facility] SERVICES HPV The result for the Human Pap illomavirus (HPV) Detection-High Risk Types is Positive . E6 OR E7 mRNA from one or more types of HPV types 16,18,31,33,35,39,45,51,52,56,58,59,66, and 68 is detected by dorman [facility] scription mediated amplifica tion. High and intermediate risk HPV types are associated with most squamous intraepithelial lesions and cervical cancers. Testing was performed on specimen [id number] and CENTER was resulted on 03/28/2022 1528 EDT by CAMMY, LAB INSTRUMENT RESULTS IN LABORATORY SERVICES Performing Lab [facility] SERVICES Scanned Images [facility] SERVICES Specimen Pap Test - Cervix and/or Endocervix Performing Organization Address City/State/ZIP Code Phon e Number [facility] [address] [place] [address] SERVICES documented in this encounter Visit Diagnoses Diagnosis Encounter for other general examination documented in this encounter Care Teams Tempering Oven Operator Relationship Specialty Start Date End Date None, Provider PCP - General 12/09/19 documented as of this encounter
--- OUTSIDE RECORDS SUMMARY | 2022-05-02 10:17 | XMS_ITS | Encounter Summary ---
:1980 Author Organization [facility] Address [address] [place] [address] Care Team Providers Name Role Phone Unavailable Primary Care Provider Unavailable Encounter Details Date Type Department Care Team Description 04/12/2004 Results Only [facility] - Felisha Garcia MD conversion [address] [facility] [address] [place] [address] [place], [place] [id number] [phone] Social History Tobacco Use Types Packs/Day Years Used Date Never Assessed Sex Assigned at Date Recorded Not on file documented as of this encounter Plan of Treatment Not on filedocumented as of this encounter Procedures Procedure Name Priority Date/Time Associated Diagnosis Comme nts CYTOPATHOLOGY Routine 04/12/2004 0:00 EDT Results for this procedure are i n the results section . documented in this encounter Results CYTOPATHOLOGY (04/12/2004 0:00 EDT) Pathology Report: CYTOPATHOLOGY REPORT [facility] Reports generated via electronic interface contain carlos ginal data; however they are lacking the format of the original re port. Caution should be taken when reading/interpreting unfo rmatted reports. Name: ? CHINO GIL ? Accession #: ? [id number] : ? 1980 (Age: 24) ??F ?Collect Date: ? 11/2003 Location: ? [facility] ? Receive Date : ? 04/17/2004 Provider: ?FELISHA MENDOSA MD Copy to: ? Specimen/Source: ?ThinPrep Pap Test, Cervix/ Endocervix Last Menstrual Period: ? Menstrual/ Status: ? SPECIMEN ADEQUACY ? Satisfactory for Evaluation - transformation zone component present GENERAL CATEGORIZATION ? Negative for Intraepithelial Lesion or Malignan cy INTERPRETATION ? Shift in [place] present suggestive of bacterial vaginosis. ? Document reviewed and electronically signed by: ? DAVON Santos(ASCP) ? Report Date: ??04/23/2004 11:32 End of Report Specimen Performing Organization Address City/State/ZIP Code Phon e Number [facility] [address] [place] [address] SERVICES [facility] [address] [place] [address] documented in this encounter Visit Diagnoses Not on filedocumented in this encounter
--- OUTSIDE RECORDS SUMMARY | 2022-05-02 10:17 | XMS_ITS | Encounter Summary ---
:1980 Author Organization [facility] Address [address] [place] [address] Care Team Providers Name Role Phone Unavailable Primary Care Provider Unavailable Encounter Details Date Type Department Care Team Description 12/07/2013 Hospital Encounter [facility]- Gunjan Unknown, Provider, [facility] [address] [facility] [phone] [place] [address] (Work) [phone] Social History Tobacco Use Types Packs/Day Years Used Date Never Assessed Sex Assigned at Date Recorded Not on file documented as of this encounter Discharge Disposition Disposition Code Departure Means Destination Home or Self Shelter documented in this encounter Plan of Treatment Not on filedocumented as of this encounter Visit Diagnoses Not on filedocumented in this encounter
--- OUTSIDE RECORDS SUMMARY | 2022-05-02 10:17 | XMS_ITS | Encounter Summary ---
:1980 Author Organization [facility] Address [address] [place] [address] Care Team Providers Name Role Phone None, Provider Primary Care Provider Unavailable Encounter Details Date Type Department Care Team Description 01/16/2021 Lab Requisition [facility] Jahaira Dugan En counter for other Pathology & A, TIN ASSORTER general examination Laboratory Medicine [address] [place], [place] 111 [facility] [id number] [place], [place] [id number] Social History Tobacco Use Types Packs/Day Years Used Date Never Assessed Sex Assigned at Date Recorded Not on file documented as of this encounter Plan of Treatment Not on filedocumented as of this encounter Procedures Procedure Name Priority Date/Time Associated Comments Diagnosis PAP TEST Today 01/16/2021 8:30 Encounter for other Resul ts for this EDT general examination procedur e are in the results section. HUMAN PAPILLOMAVIRUS Today 01/16/2021 8:30 Encounter for oth er Results for this (HPV) DETECTION-HIGH EDT general examination procedure are in RISK TYPES the results section. documented in this encounter Results (ABNORMAL) HUMAN PAPILLOMAVIRUS (HPV) DETECTION-HIGH RISK TYPES (01/16/2021 8:30 EDT) Human Papillomavirus Positive (A)Comment: Negative [facility] (HPV) Detection-High E6 OR E7 mRNA from CENTER Types one or more types of LABORATORY HPV types SERVICES 16,18,31,33,35,39,45, 51,52,56,58,59,66, and 68 is detected by web site admin mediated amplification. High and intermediate risk HPV types are associated with most squamous intraepithelial lesions and cervical cancers. Specimen Pap Test - Cervix and/or Endocervix Performing Organization Address City/[facility]/ZIP Code Phon e Number [facility] [address] [place] [address] SERVICES PAP TEST (01/16/2021 8:30 EDT) Specimens A. Cervix and/or [facility] MEDICAL Endocervix , ThinPrep CENTER Imaging System with LABORATORY Manual Evaluation SERVICES Specimen Adequacy Satisfactory for [facility] MEDICAL Evaluation - [place] transformation zone LABORATORY component present SERVICES General Epithelial Cell [facility] MEDICAL Categorization Abnormality CENTER LABORATORY SERVICES Descriptive Squamous Cell [facility] MEDICAL Diagnosis Abnormality - CENTER Atypical squamous LABORATORY cells, undetermined SERVICES significance (ASC-US). Educational Comments [facility] recommends following A SCCP's 2012 Updated Consensus Guidelines for the Management of Abnormal Cervical Cancer Screening Tests and Cancer Precursors (JLGTD, 2013; 17(5):S1-S27). Consensus guidelines are available online at www.asccp.org. [facility] SERVICES Attestation By the signature below, the attending physician certifies that they have personally conducted a gross and/or microscopic [facility] Electronically examination of the described specimens and rendered or confirmed the above diagnosis. CENTER signed by ALAN Le MD on SERVICES 01/23/2021 at 08 23 Clinical History See below [facility] SERVICES HPV The result for the Human Pap illomavirus (HPV) Detection-High Risk Types is Positive . E6 OR E7 mRNA from one or more types of HPV types 16,18,31,33,35,39,45,51,52,56,58,59,66, and 68 is detected by dorman [facility] scription mediated amplifica tion. High and intermediate risk HPV types are associated with most squamous intraepithelial lesions and cervical cancers. Testing was performed on specimen [id number] and CENTER was resulted on 01/23/2021 0820 EDT by CAMMY, LAB INSTRUMENT RESULTS IN LABORATORY SERVICES Performing Lab [facility] SERVICES Scanned Images [facility] SERVICES Specimen Pap Test - Cervix and/or Endocervix Performing Organization Address City/[facility]/ZIP Code Phon e Number [facility] [address] [place] [address] SERVICES documented in this encounter Visit Diagnoses Diagnosis Encounter for other general examination documented in this encounter Additional Health Concerns Infection Onset Date Last Indicated Resolved Time COVID-19 02/07/2021 02/07/2021 03/09/2021 22:15 EDT documented as of this encounter Care Teams Rewriter Relationship Specialty Start Date End Date None, Provider PCP - General 12/09/19 documented as of this encounter
--- OUTSIDE RECORDS SUMMARY | 2022-05-02 10:17 | XMS_ITS | Encounter Summary ---
:1980 Author Organization [facility] Address [address] [place] [address] Care Team Providers Name Role Phone Unavailable Primary Care Provider Unavailable Encounter Details Date Type Department Care Team Description 01/07/2005 Results Only [facility] - Felisha Garcia MD conversion [address] [facility]3] [address] [place] [address] [place], [place] [id number] [phone] Social History Tobacco Use Types Packs/Day Years Used Date Never Assessed Sex Assigned at Date Recorded Not on file documented as of this encounter Plan of Treatment Not on filedocumented as of this encounter Procedures Procedure Name Priority Date/Time Associated Diagnosis Comme nts CYTOPATHOLOGY Routine 01/07/2005 0:00 EST Results for this procedure are i n the results section . documented in this encounter Results CYTOPATHOLOGY (01/07/2005 0:00 EST) Pathology Report: CYTOPATHOLOGY REPORT [facility] Reports generated via electronic interface contain carlos ginal data; however they are lacking the format of the original re port. Caution should be taken when reading/interpreting unfo rmatted reports. Name: ? CHINO GIL ? Accession #: ? [id number] : ? 1980 (Age: 24) ??F ?Collect Date: ? 12/11 Location: ? [facility] ? Receive Date : ? 01/09/2005 Provider: ?FELISHA MENDOSA MD Copy to: ? Specimen/Source: ?ThinPrep Pap Test, Vagina/ Cervix/Endocervix Last Menstrual Period: ? Menstrual/ Status: ? Post ? SPECIMEN ADEQUACY ? Satisfactory for Evaluation - transformation zone component present GENERAL CATEGORIZATION ? Negative for Intraepithelial Lesion or Malignan cy ? Document reviewed and electronically signed by: ? DAVON Erazo(ASCP) ? Report Date: ??01/14/2005 11:14 End of Report Specimen Performing Organization Address City/State/ZIP Code Phon e Number [facility] [address] [place] [address] SERVICES [facility] [address] [place] [address] documented in this encounter Visit Diagnoses Not on filedocumented in this encounter
--- OUTSIDE RECORDS SUMMARY | 2022-05-02 10:17 | XMS_ITS | Encounter Summary ---
:1980 Author Organization Address [address] [place] [address] Care Team Providers Name Role Phone None, Provider Primary Care Provider Unavailable Encounter Details Date Type Department Care Team Description 07/02/2021 Lab Requisition [facility] Tatiana Chavarria, En counter for other Pathology & MD general examination Laboratory Medicine [address] [facility] ,[address] [place] [address] Social History Tobacco Use Types Packs/Day Years Used Date Never Assessed Sex Assigned at Date Recorded Not on file documented as of this encounter Plan of Treatment Not on filedocumented as of this encounter Procedures Procedure Name Priority Date/Time Associated Diagnosis Comme nts SURGICAL PATHOLOGY Today 07/02/2021 9:30 EDT Encounter for o ther Results for this general examination procedur e are in the results section. documented in this encounter Results SURGICAL PATHOLOGY (07/02/2021 9:30 EDT) Note to Patient The following [facility] pathology results CENTER have been interpreted LABORATORY by your pathologist SERVICES and may be available to you before your health provider has had the opportunity to review them. Please allow time for your provider to receive these results and explore management options, if applicable. Final Diagnosis A. ENDOCERVIX, CURETTAGE: [facility] MEDICAL - Benign endocervical tissue. CENTER LABORATORY B. CERVIX, 3 O'CLOCK, BIOPSY: SERVICES - Squamous metaplasia with reactive atypia. Attestation By the signature [facility] MEDICAL Electronica lly below, the attending CENTER signed by Kurtis physician certifies LABORATORY Navya Mcgee MD on that they have 1) SERVICES 07/03/2021 at [facility] personally conducted a gross and/or microscopic examination of the described specimen(s), and/or personally interpreted the results of laboratory testing of the described specimen(s), and 2) personally rendered or confirmed the above diagnosis. Clinical History ASCUS, positive HPV [facility] SERVICES Gross Description A. [facility] MEDICAL Received in formalin omero d with proper patient identification (initials B, D) and endo cx curettage is an aggregate of hemorrhagic mucin (0.6 x 0.5 x 0.5 cm). The specimen is submitted entirely in A1. CENTER LABORATORY B. SERVICES Received in formalin omero d with proper patient identification (initials B, D) and cx 3 o'clock is a single fragment of white tissue (0.3 x 0.3 x 0.3 cm). The specimen is submitted in B1. PRIYA BARDALES(ASCP) 07/02/2021 16:41 Performing Lab [facility] SERVICES Scanned Images [facility] SERVICES Specimen Tissue - Entire wall of cervix (body str ucture) Tissue specimen (specimen) - Entire wall of cervix (body structure) Performing Organization Address City/State/ZIP Code Phon e Number [facility] [address] [place] [address] SERVICES documented in this encounter Visit Diagnoses Diagnosis Encounter for other general examination documented in this encounter Care Teams Assisted Living Coordinator Relationship Specialty Start Date End Date None, Provider PCP - General 12/09/19 documented as of this encounter
--- OUTSIDE RECORDS SUMMARY | 2022-05-02 10:17 | XMS_ITS | Encounter Summary ---
:1980 Author Organization [facility] Address [address] [place] [address] Care Team Providers Name Role Phone Unavailable Primary Care Provider Unavailable Encounter Details Date Type Department Care Team Description 02/27/2006 Results Only [facility] - Samanta Mendez NP conversion [facility] [address] [place] [address] [place] [address] [phone] Social History Tobacco Use Types Packs/Day Years Used Date Never Assessed Sex Assigned at Date Recorded Not on file documented as of this encounter Plan of Treatment Not on filedocumented as of this encounter Procedures Procedure Name Priority Date/Time Associated Diagnosis Comme nts CYTOPATHOLOGY Routine 02/27/2006 0:00 EDT Results for this procedure are i n the results section . documented in this encounter Results CYTOPATHOLOGY (02/27/2006 0:00 EDT) Pathology Report: CYTOPATHOLOGY REPORT [facility] Reports generated via electronic interface contain carlos ginal data; however they are lacking the format of the original re port. Caution should be taken when reading/interpreting unfo rmatted reports. Name: ? CHINO GIL ? Accession #: ? [id number] : ? 1980 (Age: 26) ??F ?Collect Date: ? 02/09 Location: ? [facility] ? Receive Date : ? 03/03/2006 Provider: ?SAMANTA BHATT REGISTRATION REP Copy to: ? Specimen/Source: ? ThinPrep Pap Test, Cervix/Endocervix, processed on Retty ThinPrep Imaging System, with manual evaluation Last Menstrual Period: ? 12/19/05 Hormonal/Contraceptive Status: ? Depo-Provera ? SPECIMEN ADEQUACY ? Satisfactory for Evaluation - transformation zone component present - scant squamous epithelial component secondary to exc essive mucus GENERAL CATEGORIZATION ? Negative for Intraepithelial Lesion or Malignan cy ? Document reviewed and electronically signed by: ? Samanta Orozco, SCT(ASCP) ? Report Date: ??03/05/2006 14:56 End of Report Specimen Performing Organization Address City/State/ZIP Code Phon e Number [facility] [address] [place] [address] SERVICES [facility] [address] [place] [address] documented in this encounter Visit Diagnoses Not on filedocumented in this encounter
--- OUTSIDE RECORDS SUMMARY | 2022-05-02 10:17 | XMS_ITS | Encounter Summary ---
:1980 Author Organization [facility] Address [address] [place] [address] Care Team Providers Name Role Phone Samanta Moreno NP Primary Care Provider None, Provider Primary Care Provider Unavailable Encounter Details Date Type Department Care Team Description 11/22/2019 Lab Requisition [facility] Gregory Mccoy CNM Encounter for other Pathology & [address] [facility] Laboratory Medicine [place], [place] 111 [facility] [address] [place], [place] [id number] Social History Tobacco Use Types Packs/Day Years Used Date Never Assessed Sex Assigned at Date Recorded Not on file documented as of this encounter Plan of Treatment Not on filedocumented as of this encounter Procedures Procedure Name Priority Date/Time Associated Comments Diagnosis PAP TEST Today 11/21/2019 11:40 Encounter for other Resu lts for this EST general examination procedur e are in the results section. HUMAN PAPILLOMAVIRUS Today 11/21/2019 11:40 Encounter for ot her Results for this (HPV) DETECTION-HIGH EST general examination procedure are in RISK TYPES the results section. documented in this encounter Results (ABNORMAL) HUMAN PAPILLOMAVIRUS (HPV) DETECTION-HIGH RISK TYPES (11/21/2019 11:40 EST) Human Papillomavirus Positive (A)Comment: Negative [facility] (HPV) Detection-High E6 OR E7 mRNA from CENTER Types one or more types of LABORATORY HPV types SERVICES 16,18,31,33,35,39,45, 51,52,56,58,59,66, and 68 is detected by roller mill tender mediated amplification. High and intermediate risk HPV types are associated with most squamous intraepithelial lesions and cervical cancers. Specimen Pap Test - Cervix and/or Endocervix Performing Organization Address City/[facility] Phon e Number [facility] [address] [place] [address] SERVICES PAP TEST (11/21/2019 11:40 EST) Specimens A. Cervix and/or [facility] MEDICAL Endocervix, , CENTER ThinPrep Imaging LABORATORY System with Manual SERVICES Evaluation Specimen Adequacy Satisfactory for [facility] MEDICAL Evaluation - CENTER transformation zone LABORATORY component present SERVICES General Negative for [facility] MEDICAL Categorization intraepithelial CENTER lesion or malignancy LABORATORY SERVICES Descriptive Reactive cellular [facility] MEDICAL Diagnosis changes associated CENTER with inflammation LABORATORY present (includes SERVICES repair). Attestation By the signature below, the attending physician certifies that they have personally conducted a gross and/or microscopic [facility] Electronically examination of the described specimens and rendered or confirmed the above diagnosis. CENTER signed by LABORATORY Manolo Cortes MD on 020 at 1357 Clinical History SEE ORDER COMMENTS [facility] SERVICES HPV The result for the Human Pap illomavirus (HPV) Detection-High Risk Types is Positive . E6 OR E7 mRNA from one or more types of HPV types 16,18,31,33,35,39,45,51,52,56,58,59,66, and 68 is detected by dorman [facility] scription mediated amplifica tion. High and intermediate risk HPV types are associated with most squamous intraepithelial lesions and cervical cancers. Testing was performed on specimen [id number] and CENTER was resulted on 11/30/2019 1351 EST by CAMMY, LAB INSTRUMENT RESULTS IN LABORATORY SERVICES Scanned Images [facility] SERVICES Specimen Pap Test - Cervix and/or Endocervix Performing Organization Address City/[facility]/ZIP Code Phon e Number [facility] [address] [place] [address] SERVICES documented in this encounter Visit Diagnoses Diagnosis Encounter for other general examination documented in this encounter Additional Health Concerns Infection Onset Date Last Indicated Resolved Time COVID-19 02/07/2021 02/07/2021 03/09/2021 22:15 EDT documented as of this encounter Care Teams Director Of Corporate Responsibility Relationship Specialty Start Date End Date Samanta Moreno NP PCP - General 12/12/13 12/08/19 [facility] [address] [place] [address] None, Provider PCP - General 12/09/19 documented as of this encounter
--- OUTSIDE RECORDS SUMMARY | 2022-05-02 10:17 | XMS_ITS | Encounter Summary ---
:1980 Author Organization [facility] Address [address] [place] [address] Care Team Providers Name Role Phone None, Provider Primary Care Provider Unavailable Encounter Details Date Type Department Care Team Description 02/07/2021 Lab Requisition [facility] Outr Resulting Lab, Pathology & Laboratory Provider [facility] [address] [place] [address] Social History Tobacco Use Types Packs/Day Years Used Date Never Assessed Sex Assigned at Date Recorded Not on file documented as of this encounter Plan of Treatment Not on filedocumented as of this encounter Procedures Procedure Name Priority Date/Time Associated Diagnosis Comme nts COVID-19 TEST [facility] Today 02/07/2021 9:27 EDT LAB PCR COVID-19 TESTING Routine 02/07/2021 9:27 EDT Resu lts for this procedure are i n the results section. documented in this encounter Results [facility] (02/07/2021 9:27 EDT) Specimen Swab - Entire nasopharynx (body structur e) Performing Organization Address City/State/ZIP Code Phon e Number [facility] [address] [place] [address] SERVICES (ABNORMAL) COVID-19 TESTING (02/07/2021 9:27 EDT) COVID-19 rt-PCR Positive (AA) Negative [facility] Result Comment: LABORATORY This test has not been FDA c leared or approved. This test has been authorized by FDA under an EUA for use by authorized laboratories. This test has been authorized only for detection of nucleic acid fro SERVICES m 2018-nCoV, not for any oth er viruses or pathogens. This test is only authorized for the duration of the declaration that circumstances exist justifying the authorization of emergency use of in vitro d iagnostic tests for detectio n and/or diagnosis of 2019-nCoV under section 564(b)(1) of Act, 21 U.S.C ?? 360bbb-3(b) (1), unless the authorization is terminated or revoked sooner. Testing was performed using the leslie SARS-CoV-2 assay ([employer] on the Leslie 6800 System Performing Lab [address] [facility] Lab [facility] SERVICES Specimen Swab Performing Organization Address City/State/ZIP Code Phon e Number [facility] [address] [place] [address] SERVICES documented in this encounter Visit Diagnoses Not on filedocumented in this encounter Additional Health Concerns Infection Onset Date Last Indicated Resolved Time COVID-19 02/07/2021 02/07/2021 03/09/2021 22:15 EDT documented as of this encounter Care Teams Cross Tie Maker Relationship Specialty Start Date End Date None, Provider PCP - General 12/09/19 documented as of this encounter
== END 2022-05-02 10:03 | disposition home or self-care (01) ==
LOC: LBN 10:02
PROVIDERS: PCP Nurse Practitioner Women's Health; Visit Provider Obstetrics & Gynecology Gynecology
DX: R87.610 Atypical squamous cells of undetermined significance on cytologic smear of cervix (ASC-US) (principal); R87.810 Cervical high risk human papillomavirus (HPV) DNA test positive
CPT/HCPCS: 88305; 88342

== ENCOUNTER 2022-07-11 09:21 | Outpatient (REF) | payer OTHER, SELFPAY ==
--- NOTE | 2022-07-11 08:30 | CER_PTH ---
PATIENT: Leandra Mcdaniels LOC: [facility] U#:[id number] AGE/SX: 42/F ROOM: RE07/11/[address]: Tatiana Bravo : 1980 BED: DIS: 07/11/2022 SPEC #: [id number] RECD: 07/11/22 12:52 STATUS: ABRAHAM REQ #: [id number] CHRISTOPHER: 07/11/22 08:[address]: Tatiana Bravo DEPT: Surgical Specimen RECD BY: Nadege Granados ENTERED: 07/11/22 12:52 SP TYPE: CER OTHR DR: Jahaira Dugan, YADY Tissues: 1 - CERVICAL LEEP/LOOP Procedures: GROSS AND MICRO LEVEL 5 P16 IPEX Comments: [id number]
== END 2022-07-11 09:22 | disposition home or self-care (01) ==
LOC: LBN 09:21
PROVIDERS: PCP Nurse Practitioner Women's Health; Visit Provider Obstetrics & Gynecology Gynecology
DX: N87.1 Moderate cervical dysplasia (principal)
CPT/HCPCS: 88342; 88307

== ENCOUNTER 2023-03-23 08:27 | Outpatient (REF) | payer OTHER, SELFPAY ==
--- NOTE | 2023-03-23 08:25 | PAPFT_PTH ---
PATIENT: Leandra Mcdaniels LOC: [facility] U#:[id number] AGE/SX: 43/F ROOM: RE03/23/[address]: Jahaira Dugan NP : 1980 BED: DIS: 03/23/2023 SPEC #: [id number] RECD: 03/23/23 13:07 STATUS: ABRAHAM ZIMMERMAN #: [id number] CHRISTOPHER: 03/23/23 08:[address]: Jahaira Dugna NP DEPT: [facility] Cytology RECD BY: Nadege Granados Tissues: 1 - CX/ENDOCX FOR PAP SMEARS Procedures: PAP THIN PREP/[facility] Screening HPV DNA PROBE Comments: [id number]
== END 2023-03-23 08:28 | disposition home or self-care (01) ==
LOC: LBN 08:27
PROVIDERS: PCP Nurse Practitioner Women's Health; Visit Provider Nurse Practitioner Women's Health
DX: Z12.4 Encounter for screening for malignant neoplasm of cervix (principal); Z11.51 Encounter for screening for human papillomavirus (HPV); Z87.410 Personal history of cervical dysplasia
CPT/HCPCS: 88142; 87624

== ENCOUNTER 2023-04-02 01:14 | Outpatient (CLI) | payer OTHER, SELFPAY ==
--- NOTE | 2023-04-02 08:26 | DI.MAMMO_ITS ---
Exam(s) MAMMO SCREENING EXAM: MAMMO SCREENING CLINICAL HISTORY: screening TECHNIQUE: Mammograms were interpreted according to the usual protocol including computer analysis w g[employer] CAD system, tomosynthesis and C-view imaging. COMPARISON: 2019 FINDINGS: The breasts are composed of heterogeneously dense fibroglandular densities, Breast Density category C . No suspicious masses or suspicious microcalcifications are seen. No skin thickening or abnormal axillary lymph nodes are seen. There has been no significant change from prior exams. IMPRESSION: BI-RADS Category 1, Negative mammogram. Yearly screening mammography is recommended. Breast Density Category C, heterogeneously Dense. The mammogram demonstrates the patient's breast tissue is dense. Dense breast tissue is very common a nd is not abnormal but dense breast tissue can make it harder to find cancer on a mammogram. Also, de nse breast tissue may increase breast cancer risk. This information about the result of the mammogram report was provided to the patient to raise their awareness. Use this report when you speak with the patient about their risks for breast cancer, which includes their family history. At that time, you may recommend additional screening tests (Ultrasound or MRI) as they might be useful based on their r isk. A negative radiographic report should not delay biopsy if a dominant or clinically suspicious mass is present. Up to ten percent of cancers are not identified on mammography. A negative report may reinforce clinical impression. Adenosis and dense breasts may obscure an underlying neoplasm. False positive reports average 6 to 10%.
== END 2023-04-02 01:34 ==
LOC: DI 01:14
PROVIDERS: PCP Nurse Practitioner Women's Health; Visit Provider Nurse Practitioner Women's Health
DX: Z12.31 Encounter for screening mammogram for malignant neoplasm of breast (principal)
CPT/HCPCS: 77063; 77067

== ENCOUNTER → 2023-09-30 01:51 | Outpatient (CLI) | payer OTHER, SELFPAY | PROVIDERS: PCP Nurse Practitioner Women's Health; Visit Provider Nurse Practitioner Family | DX: R01.1 Cardiac murmur, unspecified (principal) | CPT/HCPCS: 93306 ==